=== PATIENT | female | born 1930 | race Caucasian/White ===

== ENCOUNTER 2019-06-11 06:33 | Day surgery (SDC) | payer MEDICARE ==
[~2019-06-11] VITALS: Ht 155 cm; Wt 55.9 kg
[2019-06-11] VITALS (240 sets, daily range): BP systolic 153–206; BP diastolic 92–124; PULSE 64–78; TEMP 97–97.8; O2SAT 81–100
[2019-06-11 07:32] LABS: MEAN CELL VOLUME 71 fl (80.0-100.0); MEAN CORPUSCULAR HGB CONC 29 g/dl (33.0-37.0); MEAN PLATELET VOLUME 11.3 fl (7.4-10.4); PLATELET COUNT 245 K/mm3 (130-400); RED BLOOD COUNT 4.62 M/mm3 (4.10-5.30); REDCELL DISTRIBUTION WIDTH-CV 17.4 % (11.5-14.5)
[2019-06-11 07:36] LABS: HEMATOCRIT 32.8 % (37.0-47.0); HEMOGLOBIN 9.5 g/dl (12.5-16.0); MEAN CORPUSCULAR HEMOGLOBIN 21 pg (27.0-31.0)
[2019-06-11 07:40] LABS: PROTHROMBIN TIME 11.5 SECONDS (9.7-12.8)
[2019-06-11 07:43] LABS: PARTIAL THROMBOPLASTIN TIME 33.5 SECONDS (26.0-37.0)
[2019-06-11 07:44] LABS: CALCIUM 9.5 mg/dL (8.4-10.2); CREATININE, serum 0.64 (0.52-1.25); POTASSIUM 3.5 mmol/L (3.4-5.0)
[2019-06-11] MEDS ORDERED: ZAROXOLYN5 MG PO (08:10)
[2019-06-11] MEDS ORDERED: ZEBETA 5MG5 MG PO (08:10)
[2019-06-11] MEDS ORDERED: COUMADIN 5MG5 MG/TAB PO (08:11)
[2019-06-11] MEDS ORDERED: COUMADIN4 MG PO (08:12)
--- NOTE | 2019-06-11 09:06 | NUR ---
SEE MERGE DOCUMENTATION FOR MEDICATION ADMINISTRATION TIMES AND INTRA/POST PROCEDURE SEDATION ASSESSMENTS. POSITIVE BARBEAU TEST.
--- NOTE | 2019-06-11 10:58 | NUR ---
Initial visit; Patient and family thanked Bread Wrapper for offering spiritual care, especially prayer prior to her 'Procedure.'
--- NOTE | 2019-06-11 19:50 | NUR ---
Report to EMS, Cath sites observed and explained with Batter Scaler x2. History and orders reviewed.
--- NOTE | 2019-06-11 20:00 | NUR ---
To via EMS at this time. Family will follow patient to [place]. Report called to Cintia Frey RN
== END 2019-06-11 20:00 | disposition short-term general hospital (02) ==
LOC: COL.CAR 06:33 → ICU 12:18 → COL.CAR 20:00
PROVIDERS: Internal Medicine Cardiovascular Disease; Nurse Practitioner
DX: I25.110 Atherosclerotic heart disease of native coronary artery with unstable angina pectoris (principal); I48.0 Paroxysmal atrial fibrillation; I48.20 Chronic atrial fibrillation, unspecified; Z79.01 Long term (current) use of anticoagulants; I10 Essential (primary) hypertension; D64.9 Anemia, unspecified; E03.9 Hypothyroidism, unspecified; I35.1 Nonrheumatic aortic (valve) insufficiency; I34.0 Nonrheumatic mitral (valve) insufficiency
CPT/HCPCS: OP; C9600; J1644; J2250; J2405; J3010; Q9967